=== PATIENT | male | born 1990 | race Caucasian/White ===

== ENCOUNTER 2021-04-26 23:28 | Emergency (ER) | payer MEDICAID ==
[~2021-04-26] VITALS: Ht 188 cm; Wt 99.8 kg
[2021-04-26 23:28] VITALS: BP_SYST 157
[2021-04-27] MEDS ORDERED: CLINDAMYCIN HCL 150 MG CAPSULE PO ONE (00:30)
[2021-04-27] MEDS ORDERED: CLIN300C12 PO (00:34)
[2021-04-27 01:05] VITALS: BP_SYST 157
== END 2021-04-27 01:05 | disposition home or self-care (01) ==
LOC: SED 23:28
DX: L03.012 Cellulitis of left finger (principal)
CPT/HCPCS: 87070-TC; 87186-TC; 99283